=== PATIENT | female | born 1940 | race Caucasian/White ===

== ENCOUNTER 2020-01-31 15:40 | Emergency (ER) | payer MEDICARE, MEDICAID, SELFPAY ==
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
[2020-01-31 15:49] VITALS: BP 156/95; PULSE 110; RESP 20; TEMP 37.2; O2SAT 99
[2020-01-31 16:03] VITALS: BP 156/95; PULSE 110; RESP 20; TEMP 37.2; O2SAT 99
--- NOTE | 2020-01-31 16:25 | ED.LOWEXIN ---
HPI - Extremity Injury (Lower) General Chief Complaint: Skin/Abscess/Foreign Body Stated Complaint: left middle toe injured Time Seen by Provider: 01/31/20 16:09 Source: patient and RN notes reviewed Mode of arrival: ambulatory Limitations: no limitations History of Present Illness HPI Narrative: Patient presents today complaining of redness and swelling with 2 white bumps to her left second toe. She stubbed the toe approximately 6 weeks ago on some concrete steps. She had a telemedicine visit with her PCP and was placed on 7 days of Keflex on 01/18/2020. States her symptoms did improve, but did not fully resolved. She currently denies any pain and has full range of motion. Denies numbness or tingling in the toe. Related Data Home Medications Medication Instructions Recorded Confirmed lisinopril 20 mg PO DAILY 01/31/20 01/31/20 Allergies Allergy/AdvReac Type Severity Reaction Status Date / Time No Known Allergies Allergy Verified 01/31/20 16:03 Review of Systems Review of Systems: Narrative: CONSTITUTIONAL: Denies body aches, fever, chills, or sweats. EYES: Denies visual changes, redness, or discharge. ENT: Denies rhinorrhea, congestion, sore throat, or otalgia. CARDIOVASCULAR: Denies chest pain, palpitations, or edema. RESPIRATORY: Denies cough or dyspnea. GASTROINTESTINAL: Denies abdominal pain, nausea, vomiting, or diarrhea. GENITOURINARY: Denies dysuria or hematuria. SKIN: Denies rash, itching, or wounds. MUSCULOSKELETAL: Denies back pain, joint pain, or myalgia. Left second toe bumps and redness NEUROLOGIC: Denies headache, numbness, tingling, or weakness. PSYCH: Denies depression or anxiety. [facility] Past Medical History Medical History (Updated 01/31/20 @ 17:18 by Sharon Abdi, KATT, ) Hypertension Surgical History Surgical History (Updated 01/31/20 @ 16:27 by Sharon Abdi, [employer], ) History of appendectomy History of cholecystectomy Comments At time of signature, I have reviewed and agree with nursing past medical, surgical, social and family history unless otherwise noted. Please see nursing chart for further information. There is no relevant family history pertinent to the presenting complaint Exam Narrative: Exam Narrative: GENERAL: Well-appearing, well-nourished, and in no acute distress. HEAD: Normocephalic, atraumatic. EYES: EOMI. No redness or drainage. Conjunctivae normal. ENT: Mucous membranes pink and moist. NECK: Normal AROM. CHEST: No respiratory distress. EXTREMITIES: Left second toe: at the dorsum of the distal phalax, there is approx 3mm white superficial nodular lesion. It does not appear to be an abscess. There is tiny capillaries overlying the nodular area. It is nontender. There is no edema or ecchymosis. Surrounding this nodular area, there is a very small amount of erythema. Full AROM and PROM without pain. Distal sensation intact. Capillary refill normal. SKIN: Warm, dry, no rash. Capillary refill normal. Normal skin turgor. NEURO: No focal deficits. Alert and oriented x3. Gait steady. PSYCH: Normal affect. No signs of depression or anxiety. Course Vital Signs Vital signs: Vital Signs Temperature 98.9 F 01/31/20 15:49 Pulse Rate 110 H 01/31/20 15:49 Respiratory Rate 20 01/31/20 15:49 Blood Pressure 156/95 H 01/31/20 15:49 Pulse Oximetry 99 01/31/20 15:49 Temperature 98.9 F 01/31/20 16:03 Pulse Rate 110 H 01/31/20 16:03 Respiratory Rate 20 01/31/20 16:03 Blood Pressure 156/95 H 01/31/20 16:03 Pulse Oximetry 99 01/31/20 16:03 Reviewed. Pt has been instructed to follow up with her PCP regarding her elevated blood pressure today. Transfer Transfered to: [facility] Transfer rationale: Likely osteomyelitis. Failure of outpatient antibiotics. Accepting physician: Geoffrey [facility] - Extremity Injury (Lower) Differential Diagnosis Differential diagnosis: Likely other (Toe fracture, cellulitis, abscess,
== END 2020-01-31 17:20 | disposition short-term general hospital (02) ==
PROVIDERS: Emergency Provider Nurse Practitioner; PCP Nurse Practitioner Family
DX: M86.172 Other acute osteomyelitis, left ankle and foot (principal); I10 Essential (primary) hypertension; Z96.643 Presence of artificial hip joint, bilateral
CPT/HCPCS: 73660; 99213; G0463